=== PATIENT | female | born 2005 | race Asian ===

== ENCOUNTER 2024-04-12 11:10 | Day surgery (SDC) | payer OTHER ==
[2024-04-05 14:48] VITALS: BMI 20.7
[2024-04-12] MEDS ORDERED: PROPOFOL 20 ML ONE (12:19)
[2024-04-12 12:59] VITALS: TEMP 98
[2024-04-12 13:00] VITALS: RESP 18
[2024-04-12 13:01] VITALS: BP 140/59; PULSE 86
== END 2024-04-12 13:25 | disposition home or self-care (01) ==
LOC: FASU-ENDO 11:10
PROVIDERS: ATTEND Internal Medicine Gastroenterology
PROC: 0DBL8ZX Excision of Transverse Colon, Via Natural or Artificial Opening Endoscopic, Diagnostic (ICD-10-PCS; 2024-04-12)
PROC: 0DBP8ZX Excision of Rectum, Via Natural or Artificial Opening Endoscopic, Diagnostic (ICD-10-PCS; 2024-04-12)
PROC: 0DBM8ZX Excision of Descending Colon, Via Natural or Artificial Opening Endoscopic, Diagnostic (ICD-10-PCS; 2024-04-12)
PROC: 0DBK8ZX Excision of Ascending Colon, Via Natural or Artificial Opening Endoscopic, Diagnostic (ICD-10-PCS; principal; 2024-04-12 12:16)
DX: K63.89 Other specified diseases of intestine (principal); K64.1 Second degree hemorrhoids; K64.8 Other hemorrhoids
CPT/HCPCS: 81025; 88305-TC